=== PATIENT | female | born 1960 | race Caucasian/White ===

== ENCOUNTER → 2019-10-06 | Day surgery (SDC) | payer OTHER ==
[~2019-10-06] MED LIST: Lactated Ringers 1,000 ML IV SCH; Lidocaine/Prilocaine 2.5-2.5% Crm 5 GM Tube TOP ONE; Propofol 200 MG/20 ML SDV IV ONE; fentaNYL 100 MCG/2 ML SDV IV ONE
--- NOTE | 2019-10-06 16:47 | OR ---
DATE OF OPERATION: 10/06/2019 PREOPERATIVE DIAGNOSIS: BELCHING AND HEARTBURN. POSTOPERATIVE DIAGNOSIS: BELCHING AND HEARTBURN. SURGEON: Chris Barroso MD PROCEDURE: DIAGNOSTIC EGD WITH BIOPSIES X2, THOMPSON. ANESTHESIA: MAC. COMPLICATIONS: None. SPECIMEN: 1. Antral biopsy x1. 2. Upper fundal biopsy x1. 3. Antral THOMPSON. FINDINGS: 1. Full-length EGD. 2. Chronic and mild-appearing diffuse gastritis. 3. Spontaneous reflux without associated hernia, esophagitis, stricturing, or Nolan's changes. RECOMMENDATIONS: Medical followup with Dr. Rdz. INDICATIONS: The patient has been having some ongoing issues with reflux-type symptoms, belching, and heartburn. Dr. Rdz sent her for diagnostic EGD concerned with hernia. DESCRIPTION OF PROCEDURE: The patient was prepped and draped, placed in the left lateral decubitus position. A lubricated Olympus gastroscope was inserted over a bit, advanced to cricopharyngeus area, and easily intubated in the esophagus. The esophageal lining was benign in its entire course. The Z-line was crisp and sharp around 38.5 to 39 cm. There was no hernia present. Minimal spontaneous reflux seen during the exam. There was no esophagitis, stricturing, ulceration, or Nolan's changes. The scope was advanced into the stomach, through the pylorus, and into the second portion of the duodenum. This and the duodenal bulb were benign. The scope was brought back into the stomach and retroflexed. The patient does have kind of an indolent, chronic, and mild- appearing gastritis throughout most of the stomach lining most significant in the upper fundus, but present as well in the antrum. Biopsy of both the upper fundus and antrum were taken. There were no other signs of peptic ulcer disease including ulceration or erosion. There were no polyps or masses. The CLOtest was obtained. Air was suctioned, scope removed without complication. ENDY/GUERO /[id number]
== END ==
LOC: CC.SDS 08:59
PROVIDERS: ATTEND Family Medicine
DX: K29.50 Unspecified chronic gastritis without bleeding (principal); K21.9 Gastro-esophageal reflux disease without esophagitis; B96.81 Helicobacter pylori [H. pylori] as the cause of diseases classified elsewhere; E78.5 Hyperlipidemia, unspecified; Z88.1 Allergy status to other antibiotic agents; Z79.84 Long term (current) use of oral hypoglycemic drugs; Z79.899 Other long term (current) drug therapy
CPT/HCPCS: 43239; 87081; A9270; J2704; J3010; J7120